=== PATIENT | female | born 1990 | race Caucasian/White ===

== ENCOUNTER 2020-03-17 15:38 | Emergency (ER) | payer OTHER ==
[2020-03-17 15:44] VITALS: BP 129/90
--- NOTE | 2020-03-17 16:11 | ED Physician Documentation ---
History of Present Illness - Stated complaint Stated Complaint: JAW PX LFT - Chief complaint Chief Complaint: Heent - History obtained from History obtained from: Patient - Additonal information Additional information: 29-year-old woman with past medical history of poor dentition presents with left lower jaw swelling and pain, progressive, gradual onset over the past 6 days, worse with opening and closing the jaw. aching, constant, a/w cavity in L lower molar. denies fevers, difficulty swallowing or tolerating secretions, neck pain. Review of Systems Musculoskeletal: reports: Other (Jaw and mandibular pain) PD PAST MEDICAL HISTORY - Past Medical History Past Medical History: No - Past Surgical History Past Surgical History: Yes - Present Medications Home Medications: Ambulatory Orders Medication Instructions Recorded Confirmed Amox/Clav 875/125 [Augmentin] 1 each PO Q12H 10 Days #20 tablet 03/17/20 - Allergies Allergies/Adverse Reactions: Allergies Allergy/AdvReac Type Severity Reaction Status Date / Time No Known Drug Allergies Allergy Verified 03/17/20 15:44 - Social History Does the pt smoke?: No Smoking Status: Never smoker Does the pt drink ETOH?: No Does the pt have substance abuse?: No - Immunizations Immunizations are current?: Yes PD ED PE NORMAL - Vitals Vital signs reviewed: Yes - General General: Alert and oriented X 3 - HEENT HEENT: Atraumatic, PERRL, EOMI, Other (Poor dentition. L lower facial mild swelling. no ludwigs. protecting airway. tolerating secretions. ) - Neck Neck: Supple, no meningeal sign - Derm Derm: Normal color Results - Vitals Vitals: Vital Signs - 24 hr 03/17/20 15:42 Temperature 36.0 C L Heart Rate 89 Respiratory 16 Rate Blood Pressure 129/90 H O2 Saturation 99 Oxygen O2 Source Room air PD MEDICAL DECISION MAKING - ED course ED course: 29-year-old woman presents with left lower facial swelling and left lower dental caries, likely source. Antibiotics prescribed. Patient will follow up with her dentist. Return precautions given Departure - Departure Disposition: 01 Home, Self Care Clinical Impression: Infected dental caries, Pain due to dental caries Condition: Good Instructions: ED Cavity Dental Prescriptions: Amox/Clav 875/125 [Augmentin] 1 each PO Q12H 10 Days #20 tablet Comments: You have been seen in the emergency department for chest swelling. I believe it is due to a dental infection. Follow-up with your dentist. Return to the ED if you do not see improvement within 24 to 48 hours of starting antibiotics. Return for any new or worsening symptoms. Discharge Date/Time: 03/17/20 16:39
== END 2020-03-17 16:39 | disposition home or self-care (01) ==
LOC: ED 15:38
DX: K04.7 Periapical abscess without sinus (principal); K02.9 Dental caries, unspecified; K08.89 Other specified disorders of teeth and supporting structures
CPT/HCPCS: 99282; 99284

== ENCOUNTER 2022-09-12 19:16 | Emergency (ER) | payer OTHER ==
[2022-09-12] MEDS ORDERED: BUFFERED LIDOCAINE 10 ML SYRINGE SUBQ STA (19:33)
--- NOTE | 2022-09-12 19:34 | ED Physician Documentation ---
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 A bottle of white wine broke and she has lacerations on the right fourth and third fingers. This happened just prior to arrival.) PD PAST MEDICAL HISTORY - Past Surgical History Past Surgical History: Yes - Present Medications Home Medications: Ambulatory Orders Medication Instructions Recorded Confirmed Amox/Clav 875/125 [Augmentin] 1 each PO Q12H 10 Days #20 tablet 03/17/20 - Allergies Allergies/Adverse Reactions: Allergies Allergy/AdvReac Type Severity Reaction Status Date / Time amoxicillin Allergy Rash Verified 09/12/22 19:26 - Social History Does the pt smoke?: No Smoking Status: Never smoker Does the pt drink ETOH?: No Does the pt have substance abuse?: No - Immunizations Immunizations are current?: Yes PD ED PE NORMAL - Vitals Vital signs reviewed: Yes - General General: Alert and oriented X 3, No acute distress - Extremities Extremities: Other (There is a shallow abrasion/laceration on the pulp of the middle finger. There is a deeper 1.5 cm laceration on the pulp of the ring finger.) - Neuro Neuro: Alert and oriented X 3, Normal speech Results - Vitals Vitals: Vital Signs - 24 hr 09/12/22 19:23 Temperature 36.8 C Heart Rate 108 H Respiratory 18 Rate Blood Pressure 137/98 H O2 Saturation 100 Oxygen O2 Source Room air Procedures - Laceration (location) Right middle finger Length in cm: 1 Wound type: Superficial Wound preparation: Irrigated copiously NS Skin layer closure: Dermabond Right ring finger Length in cm: 1.5 Wound type: Linear, Into subcut fat Neurovascular status: Sensory intact, Motor intact Anesthesia: Lidocaine 1% (Digital block with buffered lidocaine with excellent anesthesia) Wound preparation: Irrigated copiously NS Skin layer closure: Nylon, Interrupted, Size #-0 - enter number (5-0), Sutures - enter # (5) Other: Patient tolerated well, No complications, Neurovascular intact PD Medical Decision Making - ED course Complexity details: other (L/I pROA [id number] completed.) Departure - Departure Disposition: Home, Self Care Clinical Impression: Finger laceration Qualifiers: Encounter type: initial encounter Finger: unspecified finger Damage to nail st atus: without damage Foreign body presence: without foreign body Laterality: right Qualified Code(s): S61.219A - Laceration without foreign body of unspecified finger without damage to nail, initial encounter Condition: Good Record reviewed to determine appropriate education?: Yes Instructions: ED Laceration Hand Comments: For the middle finger with the glue on it you can reapply a little superglue in a few days as it may come off before the wound is fully healed. For the ring finger keep it dressed with a Band-Aid. You can wash with soap and water. Return for signs of infection including redness, swelling, drainage, increased pain. Follow-up with your doctor or urgent care for suture removal in 2 weeks.
[2022-09-12 20:19] VITALS: BP 128/92
== END 2022-09-12 20:17 | disposition home or self-care (01) ==
LOC: ED 19:16
DX: S61.212A Laceration without foreign body of right middle finger without damage to nail, initial encounter (principal); S61.214A Laceration without foreign body of right ring finger without damage to nail, initial encounter; W25.XXXA Contact with sharp glass, initial encounter; Y93.89 Activity, other specified; Y92.511 Restaurant or cafe as the place of occurrence of the external cause; Y99.0 Civilian activity done for income or pay
CPT/HCPCS: 1040M; 12001; 99281

== ENCOUNTER 2022-09-26 14:36 | Emergency (ER) | payer OTHER ==
[2022-09-26 14:45] VITALS: BP 138/97
--- NOTE | 2022-09-26 14:56 | ED Physician Documentation ---
PD HPI WOUND RECHECK - Stated complaint Stated Complaint: STITCH REMOVAL - Chief complaint Chief Complaint: Wound - Histroy obtained from History obtained from: Patient - History of Present Illness Location: Right Hand Timing - onset: How many days ago (14) Associated symptoms: No: Fever, Redness, Swelling, Drainage, Pain Similar symptoms before: Diagnosis (suture removal) Recently seen: Emergency Dept - Additional information Additional information: Alexis Gamboa is a 31-year-old female was seen in the emergency department 14 days ago and had sutures placed to her right ring finger. She has had no significant problems with the wound care has had lots of stitches previously and comes in now for suture removal Review of Systems Constitutional: denies: Fever Respiratory: denies: Cough GI: denies: Vomiting Skin: reports: Laceration (s) (healing) Musculoskeletal: denies: Neck pain, Back pain, Extremity pain PD PAST MEDICAL HISTORY - Past Surgical History Past Surgical History: Yes - Present Medications Home Medications: Ambulatory Orders Medication Instructions Recorded Confirmed Amox/Clav 875/125 [Augmentin] 1 each PO Q12H 10 Days #20 tablet 03/17/20 - Allergies Allergies/Adverse Reactions: Allergies Allergy/AdvReac Type Severity Reaction Status Date / Time amoxicillin Allergy Rash Verified 09/12/22 19:26 - Social History Does the pt smoke?: No Smoking Status: Never smoker Does the pt drink ETOH?: No Does the pt have substance abuse?: No - Immunizations Immunizations are current?: Yes PD ED PE NORMAL - Vitals Vital signs reviewed: Yes (Hypertensive) - General General: Alert and oriented X 3, No acute distress, Well developed/nourished - HEENT HEENT: Atraumatic, PERRL, EOMI - Respiratory Respiratory: No respiratory distress - Derm Derm: Normal color, Warm and dry, No rash - Extremities Extremities: No deformity, No edema, Other (3 cm laceration to the right ring finger volar surface distal phalange healing well without signs of inflammation or drainage sutures are removed) - Neuro Neuro: Alert and oriented X 3, turn out 2-12 intact, No motor deficit, No sensory deficit, Normal speech Eye Opening: Spontaneous Motor: Obeys Commands Verbal: Oriented GCS Score: 15 - Psych Psych: Normal mood, Normal affect Results - Vitals Vitals: Vital Signs - 24 hr 09/26/22 14:39 Temperature 36.4 C L Heart Rate 89 Respiratory 20 Rate Blood Pressure 138/97 H O2 Saturation 99 Oxygen O2 Source Room air Procedures - Suture/staple Removal (location) - Minor right finger Suture/staple removal: # sutures (5), No complications PD Medical Decision Making - ED course Complexity details: considered differential, d/w patient ED course: Healing finger laceration with suture removal Departure - Departure Disposition: 01 Home, Self Care Clinical Impression: Encounter for removal of sutures Condition: Stable
== END 2022-09-26 14:55 | disposition home or self-care (01) ==
LOC: ED 14:36
DX: S61.214D Laceration without foreign body of right ring finger without damage to nail, subsequent encounter (principal); X58.XXXD Exposure to other specified factors, subsequent encounter
CPT/HCPCS: 99281; 99282

== ENCOUNTER 2023-11-21 17:23 | Emergency (ER) | payer OTHER ==
--- NOTE | 2023-11-21 17:35 | ED Physician Documentation ---
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 Laceration is to the left ulnar aspect of the wrist, bleeding is well-controlled patient is up-to-date with her tetanus shot she is not any blood thinners. PD PAST MEDICAL HISTORY - Past Surgical History Past Surgical History: Yes - Present Medications Home Medications: Ambulatory Orders Medication Instructions Recorded Confirmed Amox/Clav 875/125 [Augmentin] 1 each PO Q12H 10 Days #20 tablet 03/17/20 - Allergies Allergies/Adverse Reactions: Allergies Allergy/AdvReac Type Severity Reaction Status Date / Time amoxicillin Allergy Rash Verified 11/21/23 17:33 - Social History Does the pt smoke?: No Smoking Status: Never smoker Does the pt drink ETOH?: No Does the pt have substance abuse?: No - Immunizations Immunizations are current?: Yes PD ED PE NORMAL - Vitals Vital signs reviewed: Yes - General General: Alert and oriented X 3, No acute distress, Well developed/nourished - Derm Derm: Other (Small 1.2 cm laceration to ulnar aspect wrist.) - Extremities Extremities: No deformity, No tenderness to palpate, Normal ROM s pain, No edema, No calf tenderness / cord Results - Vitals Vitals: Vital Signs - 24 hr 11/21/23 11/21/23 17:30 18:19 Temperature 36.4 C L 36.4 C L Heart Rate 93 93 Respiratory 15 15 Rate Blood Pressure 134/98 H 134/98 H O2 Saturation 100 100 Oxygen O2 Source Room air Procedures - Laceration (location) Left wrist Length in cm: 1.2 (Left Ulnar wrist) Neurovascular status: Sensory intact Anesthesia: Lidocaine 1% with epi Wound preparation: Irrigated copiously NS Skin layer closure: Nylon, Interrupted, Size #-0 - enter number (5-0), Sutures - enter # (3) Other: Patient tolerated well, No complications, Neurovascular intact, Dressing applied, Tetanus UTD PD Medical Decision Making - ED course ED course: Wound inspected under direct bright light with good visualization. Area with linear laceration across soft tissue through adipose without exposure of muscle belly or tendon. No overt foreign body. Area hemostatic. Neurovascular exam congruent with above. Area extensively irrigated with sterile normal saline under pressure. Laceration repaired in simple fashion (please see procedure note for further details). Patient tolerated procedure. Cautious return precautions discussed w/ full understanding. Wound care discussed. Prompt follow up with primary care physician discussed and return for suture removal in 10-12 days. Departure - Departure Disposition: 01 Home, Self Care Clinical Impression: Arm laceration Instructions: ED Laceration All Comments: Come back for any signs of infection which would include: Redness, swelling, drainage, increased pain, or fevers. You can wash it soap and water. Keep it covered and moist with bacitracin ointment which is available over the counter; avoid neosporin. Follow-up with your physician in 10-12 days for suture removal. Forms: PCP List Discharge Date/Time: 11/21/23 18:20
[2023-11-21 17:40] VITALS: BP 134/98; O2SAT 100
[2023-11-21] MEDS: BACITRACIN ZINC OINT 1 PACKET TOP STA (18:20)
== END 2023-11-21 18:20 | disposition home or self-care (01) ==
LOC: ED 17:23
DX: S61.512A Laceration without foreign body of left wrist, initial encounter (principal); W20.8XXA Other cause of strike by thrown, projected or falling object, initial encounter; W26.0XXA Contact with knife, initial encounter; Y93.89 Activity, other specified
CPT/HCPCS: 12001; 99282